=== PATIENT | female | born 1980 ===

== ENCOUNTER 2016-03-15 05:06 | Emergency (ER) | payer MEDICAID, OTHER ==
[2016-03-15] MEDS ORDERED: LORAZEPAM 1 MG TABLET ONE (05:50)
== END 2016-03-15 06:08 | disposition home or self-care (01) ==
LOC: ED 05:06
DX: F41.0 Panic disorder [episodic paroxysmal anxiety] (principal); R07.9 Chest pain, unspecified
CPT/HCPCS: 99283 ×2; 93005; A9270